=== PATIENT | female | born 1975 | race Hispanic/Latino ===

== ENCOUNTER 2017-09-04 10:59 | Day surgery (SDC) | payer OTHER ==
[2017-09-04 12:34] VITALS: BMI 16.9
[2017-09-04] MEDS ORDERED: Lactated Ringer's 500 ML IV ONE (12:50)
[2017-09-04] MEDS ORDERED: Propofol 10 mg/ml Inj (20 ML) ONE (12:57)
[2017-09-04] MEDS ORDERED: Lidocaine Hydrochloride 5 ML INJ ONE (12:57)
[2017-09-04] MEDS ORDERED: Lactated Ringer's 500 ML IV SCH (13:15)
[2017-09-04 13:32] VITALS: TEMP 99
[2017-09-04 14:10] VITALS: BP 127/92; PULSE 86; RESP 14; O2SAT 100
== END 2017-09-04 14:00 | disposition home or self-care (01) ==
LOC: C.ENDO 10:59
PROVIDERS: ATTEND Internal Medicine
DX: K29.70 Gastritis, unspecified, without bleeding (principal); R13.10 Dysphagia, unspecified; K44.9 Diaphragmatic hernia without obstruction or gangrene; K22.10 Ulcer of esophagus without bleeding
CPT/HCPCS: 43239; 84703; 88305; 88312; 88313; 88342; J2704; J7120